=== PATIENT | male | born 1995 | race Hispanic/Latino ===

== ENCOUNTER 2021-04-23 14:09 | Emergency (ER) | payer OTHER ==
[2021-04-23 14:42] LABS: Absolute Lymphocytes (CBC) 2.2 K/uL (0.7-4.9); Basophils % 0.9 % (0-1.3); Hematocrit 37.3 % (39.6-49.0); Lymphocytes % 26.2 % (15.3-44.8); MPV 8.5 fL (7.6-11.3); RBC Red Blood Cell Count 4.19 M/uL (4.33-5.43)
--- NOTE | 2021-04-23 14:55 | EDPHYS ---
Physician Documentation [facility] Name: Joss Schroeder Age: 25 yrs Sex: Male : 1995 Arrival Date: 04/23/2021 Time: 14:11 Bed 2 Private MD: ED Physician Josué Hinson HPI: 04/23 14:15 This 25 yrs old Male presents to ER via Unassigned with complaints of Laceration to rust Upper Arm. 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 Patient stated that he was working when a piece of sheet metal came down and lacerated his right upper arm just distal to the axilla area. [facility] staff notified EMS that there was arterial bleeding. Tourniquet was made out of close. Upon EMS arrival they stated that bleeding was controlled at that time. Patient arrived alert and oriented to person place time and event. Bandaging remained in place upon arrival.. Historical: - Allergies: 14:10 No Known Allergies; bp - Home Meds: 14:10 None [Active]; bp - PMHx: 14:10 None; bp - Immunization history:: Last tetanus immunization: up to date. - Social history:: Smoking status: Patient denies any tobacco usage or history of. - Immunization history: Last tetanus immunization: - up to date. ROS: 14:15 Eyes: Negative for injury, pain, redness, and discharge, ENT: Negative for injury, jr8 pain, and discharge, Neck: Negative for injury, pain, and swelling, Cardiovascular: Negative for chest pain, palpitations, and edema, Respiratory: Negative for shortness of breath, cough, wheezing, and pleuritic chest pain, Abdomen/GI: Negative for abdominal pain, nausea, vomiting, diarrhea, and constipation, Back: Negative for injury and pain, Skin: Negative for injury, rash, and discoloration, Neuro: Negative for headache, weakness, numbness, tingling, and seizure. 14:15 MS/extremity: Positive for laceration, pain, paresthesias, tenderness, of the right arm. Exam: 14:15 Constitutional: This is a well developed, well nourished patient who is awake, alert, jr8 and in no acute distress. Neck: Trachea midline, no thyromegaly or masses palpated, and no cervical lymphadenopathy. Supple, full range of motion without nuchal rigidity, or vertebral point tenderness. No Meningismus. Chest/axilla: Normal chest wall appearance and motion. Nontender with no deformity. No lesions are appreciated. Cardiovascular: Regular rate and rhythm with a normal S1 and S2. No gallops, murmurs, or rubs. Normal PMI, no JVD. No pulse deficits. Respiratory: Lungs have equal breath sounds bilaterally, clear to auscultation and percussion. No rales, rhonchi or wheezes noted. No increased work of breathing, no retractions or nasal flaring. Abdomen/GI: Soft, non-tender, with normal bowel sounds. No distension or tympany. No guarding or rebound. No evidence of tenderness throughout. Skin: Warm, dry with normal turgor. Normal color with no rashes, no lesions, and no evidence of cellulitis. Neuro: Awake and alert, GCS 15, oriented to person, place, time, and situation. Motor strength 5/5 in all extremities. Sensory grossly intact. 14:15 Musculoskeletal/extremity: Extremities: grossly normal except: noted in the right arm: Patient has a large laceration noted to the right upper arm just distal to the axilla. Large hematoma noted within the laceration. Steady maroon flow noted. Patient has mild discoloration to the lower portion of the right upper arm with numbness present. No palpable radial pulse present. Unaffected arm with 3+ normal pulses.. Vital Signs: 14:10 BP 126 / 79; Pulse 63; Resp 17; Temp 98; Pulse Ox 99% ; Weight 86.64 kg; Height 5 ft. 8 bp in. (172.72 cm); 14:31 BP 143 / 70; Pulse 57; Resp 20; Pulse Ox 99% ; bp 14:58 BP 95 / 66; Pulse 62; Resp 20; Pulse Ox 100% ; bp 14:10 Body Mass Index 29.04 (86.64 kg, 172.72 cm) bp Mamou Coma Score: 14:10 Eye Response: spontaneous(4). Verbal Response: oriented(5). Motor Response: obeys bp commands(6). Total: 15. Trauma Score (Adult): 14:10 Eye Response: spontaneous(1); Verbal Response: oriented(1); Motor Response: obeys bp commands(2); Systolic BP: > 89 mm Hg(4); Respiratory Rate: 10 to 29 per min(4); Jocelyne Score: 15; Trauma Score: 12 MDM: 14:15 Patient medically screened. rust 14:15 Data reviewed: vital signs, nurses notes, lab test result(s). Data interpreted: Pulse jr8 oximetry: on room air is 100 %. Interpretation: normal. Counseling: I had a detailed discussion with the patient and/or guardian regarding: the historical points, exam findings, and any diagnostic results supporting the discharge/admit diagnosis, lab results, the need to transfer to another facility, for higher level of care, [facility] does not immediately have the required specialist. 14:39 ED course: Bedside US by me shows sluggish monophasic wave form at the brachial artery. jr8 No wave form to radial artery. 14:53 ED course: [facility] landed. Still waiting on [facility] to call back . rust 15:32 ED course: Spoke with Dr. Weiss at [facility] trauma services about patient. Accepted rust patient for further evaluation of vascular injury . 04/23 14:15 Order name: Basic Metabolic Panel; Complete Time: 15:08 rust 04/23 14:15 Order name: CBC with Diff; Complete Time: 14:55 rust 04/23 14:41 Order name: SARS-COV-2 RT PCR (Document "Date of Onset" if Symptomatic) [facility] 04/23 14:15 Order name: Labs collected and sent; Complete Time: 14:33 rust 04/23 14:41 Order name: IV Saline Lock - Large Bore; Complete Time: 14:59 [facility] 04/23 14:41 Order name: NPO; Complete Time: 14:59 [facility] 04/23 14:41 Order name: Labs - recollect needed: recollect type and screen, reband pt; Complete bd Time: 14:59 Administered Medications: 14:15 Drug: NS 0.9% 1000 ml Route: IV; Rate: 125 ml/hr; Site: left antecubital; ll1 14:59 Follow up: IV Status: Infusion continued upon transfer bp 15:03 Follow up: Response: No adverse reaction; IV Status: Infusion continued upon transfer; ll1 IV Intake: 100ml 14:55 Not Given (UTD): Tetanus-Diphtheria Toxoid Adult 0.5 ml IM once ll1 14:55 Drug: ceFAZolin 2 grams Route: IVPB; Infused Over: 30 mins; Site: left antecubital; bp 15:00 Follow up: IV Status: Infusion continued upon transfer bp 15:03 Follow up: Response: No adverse reaction; IV Status: Infusion continued upon transfer; ll1 IV Intake: 100ml Disposition: 04/24 06:58 Co-signature as Attending Physician, Josué Hinson MD I agree with the assessment and solo plan of care. Disposition Summary: 04/23/21 14:55 Transfer Ordered Transfer Location: [facility] jr8 Reason: Higher level of care jr8 Condition: Serious jr8 Problem: new jr8 Symptoms: have improved jr8 Accepting Physician: THELMA Murcia(04/23/21 15:33) ll1 Diagnosis - Laceration of other specified blood vessels at shoulder and upper arm level, right jr8 arm, initial encounter Forms: - Medication Reconciliation Form jr8 - SBAR form jr8 Signatures: Dispatcher [employer] EDAlba Ferguson Corey, MD MD cha Roszak, Josh, PA PA jr8 Paul Mondragon RN RN Chetan Haro RN RN ll1 Corrections: (The following items were deleted from the chart) 04/23 15:33 14:55 [facility] jr8 ll1
--- NOTE | 2021-04-23 14:55 | ER ---
Nurse's Notes [facility] Name: Joss Schroeder Age: 25 yrs Sex: Male : 1995 Arrival Date: 04/23/2021 Time: 14:11 Bed 2 Private MD: Diagnosis: Laceration of other specified blood vessels at shoulder and upper arm level, right arm, initial encounter Presentation: 04/23 14:10 Chief complaint: EMS states: PARTIAL AMPUTATION OF RUE WITH SHEET METAL. Coronavirus bp screen: At this time, the client does not indicate any symptoms associated with coronavirus-19. Ebola Screen: No symptoms or risks identified at this time. Initial Sepsis Screen: Does the patient meet any 2 criteria? No. Patient's initial sepsis screen is negative. Does the patient have a suspected source of infection? No. Patient's initial sepsis screen is negative. Risk Assessment: Do you want to hurt yourself or someone else? Patient reports no desire to harm self or others. Onset of symptoms was April 23, 2021 at 13:00. Care prior to arrival: IV initiated. 18 GA, in the left antecubital area. 14:10 Method Of Arrival: EMS: [facility] bp 14:10 Acuity: DONNY 2 bp 14:10 Mechanism of Injury: Laceration sustained TDCJ while doing crafts, from metal object, bp Injury was accidental. Trauma event details: Injury occurred in the [facility], Injury occurred: in an institution. Injury occurred: April 23, 2021 Injury occurred at: 13:00. 14:29 Complicating Factors: There are no complicating factors for this patient. bp 15:03 Care prior to arrival: tourniquet. ll1 Triage Assessment: 14:10 General: Appears distressed, uncomfortable, Behavior is cooperative, appropriate for bp age, anxious. Pain: Complains of pain in right axilla. EENT: No deficits noted. Neuro: No deficits noted. Cardiovascular: No deficits noted. Rhythm is sinus rhythm. Respiratory: No deficits noted. Airway is patent Respiratory effort is even, unlabored. GI: No signs and/or symptoms were reported involving the gastrointestinal system. : No signs and/or symptoms were reported regarding the genitourinary system. Derm: No deficits noted. Musculoskeletal: Circulation, motion, and sensation intact. PARTIAL AMPUTATION AT R AXILLA. Injury Description: Laceration sustained to right axilla is full thickness, jagged, 7.6 to 20 cm long, bleeding moderately, was sustained 1-2 hours ago. moderate bleeding noted at this time. A dressing was applied. 14:29 Injury Description: Laceration sustained to right axilla is jagged, 7.6 to 20 cm long, bp bleeding moderately. Trauma Activation: Consult Physician: ED Physician; Name: ; Notified At: ; Arrived At: Physician: General Surgeon; Name: ; Notified At: ; Arrived At: Physician: Radiology; Name: ; Notified At: ; Arrived At: Physician: Respiratory; Name: ; Notified At: ; Arrived At: Physician: Lab; Name: ; Notified At: ; Arrived At: Historical: - Allergies: 14:10 No Known Allergies; bp - Home Meds: 14:10 None [Active]; bp - PMHx: 14:10 None; bp - Immunization history:: Last tetanus immunization: up to date. - Social history:: Smoking status: Patient denies any tobacco usage or history of. - Immunization history: Last tetanus immunization: - up to date. Screenin:10 Abuse screen: Denies threats or abuse. Denies injuries from another. Tuberculosis bp screening: No symptoms or risk factors identified. 14:10 Nutritional screening: No deficits noted. Fall Risk None identified. bp Primary Survey: 14:10 NO uncontrolled hemorrhage observed. A: The patient is alert. Airway: patent. bp Breathing/Chest: Respiratory pattern: regular, Respiratory effort: spontaneous, unlabored, Breath sounds: clear. Circulation: Cardiac rhythm: sinus rhythm Heart tones present. Disability Alert. Exposure/Environment: All clothing and personal items were removed. Forensic evidence collection is not deemed to be indicated at this time. Items placed in patient belonging bag. There is no evidence of uncontrolled external bleeding. Obvious injury(ies) are noted at this time: R AXILLARY PARTIAL AMPUTATION. 15:03 Reassessment Breathing/Chest Respiratory pattern Regular Respiratory effort Spontaneous ll1 Unlabored. Assessment: 14:10 General: SEE TRIAGE NOTE. bp 14:32 Reassessment: U/S AT B/S FOR ARTERIAL EVALUATION. bp 14:58 Reassessment: PHI AT B/S FOR TRANSPORT VIA FLIGHT. bp 15:02 Reassessment: No changes from previously documented assessment. Patient and/or family ll1 updated on plan of care and expected duration. Pain level reassessed. Patient is alert, oriented x 3, equal unlabored respirations, skin warm/dry/pink. Vital Signs: 14:10 BP 126 / 79; Pulse 63; Resp 17; Temp 98; Pulse Ox 99% ; Weight 86.64 kg; Height 5 ft. 8 bp in. (172.72 cm); 14:31 BP 143 / 70; Pulse 57; Resp 20; Pulse Ox 99% ; bp 14:58 BP 95 / 66; Pulse 62; Resp 20; Pulse Ox 100% ; bp 14:10 Body Mass Index 29.04 (86.64 kg, 172.72 cm) bp Jocelyne Coma Score: 14:10 Eye Response: spontaneous(4). Verbal Response: oriented(5). Motor Response: obeys bp commands(6). Total: 15. Trauma Score (Adult): 14:10 Eye Response: spontaneous(1); Verbal Response: oriented(1); Motor Response: obeys bp commands(2); Systolic BP: > 89 mm Hg(4); Respiratory Rate: 10 to 29 per min(4); Silverton Score: 15; Trauma Score: 12 ED Course: 14:10 Patient has correct armband on for positive identification. Bed in low position. Call bp light in reach. Side rails up X2. Adult w/ patient. Security at bedside. 14:10 Maintain EMS IV. Dressing intact. Good blood return noted. Site clean \T\ dry. Gauge \T\ bp site: 18 G LEFT AC. IV is patent, with fluids infusing freely. Patient maintains SpO2 saturation greater than 95% on room air. 14:11 Patient arrived in ED. am2 14:14 Ishan Gupta PA is PHCP. jr8 14:15 Josué Hinson MD is Attending Physician. jr8 14:16 Paul Mondragon, JENNIFER is Primary Nurse. bp 14:21 Triage completed. bp 14:29 Arm band placed on. bp 14:53 initiated transfer to [facility]. bd 15:03 No provider procedures requiring assistance completed. Patient transferred, IV remains ll1 in place. 15:04 Thermoregulation: warm blanket given to patient. ll1 15:05 on hold with [facility]. bd 15:34 pt accepted in transfer to [facility] by dr [email or web address], admin approval given by [email or web address] Administered Medications: 14:15 Drug: NS 0.9% 1000 ml Route: IV; Rate: 125 ml/hr; Site: left antecubital; [facility] 14:59 Follow up: IV Status: Infusion continued upon transfer bp 15:03 Follow up: Response: No adverse reaction; IV Status: Infusion continued upon transfer; 1 IV Intake: 100ml 14:55 Not Given (UTD): Tetanus-Diphtheria Toxoid Adult 0.5 ml IM once [facility] 14:55 Drug: ceFAZolin 2 grams Route: IVPB; Infused Over: 30 mins; Site: left antecubital; bp 15:00 Follow up: IV Status: Infusion continued upon transfer bp 15:03 Follow up: Response: No adverse reaction; IV Status: Infusion continued upon transfer; 1 IV Intake: 100ml Intake: 14:10 IV: 500ml; Total: 500ml. bp 15:03 IV: 100ml; Total: 600ml. ll1 15:03 IV: 100ml; Total: 700ml. 1 Output: 14:10 Urine: 0ml; Total: 0ml. bp Outcome: 14:55 ER care complete, transfer ordered by . jr8 15:04 Transferred by helicopter to [facility]. 1 15:04 Condition: stable 15:04 Instructed on the need for transfer. 15:04 Patient's length of stay was not longer than 2 hours. 1 15:33 Transferred Transfer form completed. Note: report given to Melani Vincent RN at [address] 15:33 Patient left the ED. [facility] Signatures: Alba Ladd Josh, PA PA jr8 Trini Martínez Brian, RN RN Chetan Haro RN RN [facility]
[2021-04-23] MEDS ORDERED: CEFAZOLIN SODIUM 1 GM/VIAL ONE (14:57)
[2021-04-23 15:00] LABS: Potassium 3.7 mmol/L (3.5-5.1)
[2021-04-23 15:39] VITALS: TEMP 98
[2021-04-23 15:42] VITALS: BP 95/66; O2SAT 100
== END 2021-04-23 15:33 | disposition short-term general hospital (02) ==
LOC: ER 14:09
DX: S45.891A Other specified injury of other specified blood vessels at shoulder and upper arm level, right arm, initial encounter (principal); W26.8XXA Contact with other sharp object(s), not elsewhere classified, initial encounter; Y92.89 Other specified places as the place of occurrence of the external cause; Y99.8 Other external cause status; Z23 Encounter for immunization; Z20.822 Contact with and (suspected) exposure to COVID-19
CPT/HCPCS: 96361; 85025; 80048; 36415; 96374; 99285; U0003; J0690